=== PATIENT | female | born 1985 | race African-American/Black ===

== ENCOUNTER 2021-10-17 15:33 | Emergency (ER) | payer MEDICAID ==
[~2021-10-17] VITALS: Ht 170.2 cm; Wt 181.0 kg
[2021-10-17] MEDS ORDERED: lasix (15:47)
[2021-10-17] MEDS ORDERED: abilify (15:47)
[2021-10-17] MEDS ORDERED: FUROSEMIDE 40MG/4ML VIAL IVP ONE (18:00)
[2021-10-17 18:03] LABS: EOSINOPHILS % 0.2 % (0.0-5.0); HEMATOCRIT. 31.2 % (36.0-48.0); HEMOGLOBIN. 10.1 g/dL (12.0-16.0); LYMPHOCYTES % 28.6 % (20.0-50.0); MEAN CORPUSCULAR HEMOGLOBIN 25.5 pg (28.0-32.0); MEAN PLATELET VOLUME 8.6 fl (7.4-10.4); NEUTROPHILS % 61.2 % (40.0-76.0); PLATELET 331 x1000/uL (130-400); RED BLOOD CELL COUNT 3.95 mill/uL (4.2-5.4); RED CELL DISTRIBUTION WIDTH 20.4 % (11.6-14.6)
[2021-10-17 18:13] LABS: CHLORIDE 99 mEq/L (98-107)
[2021-10-17 18:22] LABS: HCG SCREEN NEGATIVE
[2021-10-17] MEDS ORDERED: MORPHINE SULFATE 4 MG/ML CPJ (NOT FOR IM USE) IV ONE (20:15)
[2021-10-17] MEDS ORDERED: TOPUD PO (20:25)
[2021-10-17] MEDS ORDERED: IBUP-2028 MT (20:25)
[2021-10-17] MEDS ORDERED: ZINC113C10 TP (20:25)
[2021-10-17] MEDS ORDERED: LIDO1ADH5 TP (20:26)
[2021-10-17] MEDS ORDERED: MORP15TA67 MT (20:27)
[2021-10-17 21:20] VITALS: BP 139/97
== END 2021-10-17 21:26 | disposition home or self-care (01) ==
LOC: ER 15:33
DX: I11.0 Hypertensive heart disease with heart failure (principal); I50.9 Heart failure, unspecified; G89.29 Other chronic pain; M54.9 Dorsalgia, unspecified; R61 Generalized hyperhidrosis; E66.01 Morbid (severe) obesity due to excess calories; F17.200 Nicotine dependence, unspecified, uncomplicated; Z98.890 Other specified postprocedural states; Z79.899 Other long term (current) drug therapy; Z68.44 Body mass index [BMI] 60.0-69.9, adult
CPT/HCPCS: 36415; 71045; 80053; 83880; 84484; 84703; 85025; 93005; 96374; 96375; 99285; J1940; J2270